=== PATIENT | female | born 1985 | race Caucasian/White ===

== ENCOUNTER 2016-06-01 11:07 | Emergency (ER) | payer SELFPAY ==
[~2016-06-01 11:07] MED LIST: Iopamidol 370 76% 100 ML VIAL ONE
[2016-06-01 11:52] LABS: Bilirubin Negative (Negative); Blood, Urine Trace (Negative); Glucose, Urine (Dipstick) Negative (Negative); Ketone, Urine Negative (Negative); Nitrite Negative (Negative); Protein, Urine (Dipstick) Negative (Neg-Trace); Urobilinogen 0.2 mg/dL (0.2-1.0)
[2016-06-01] MEDS ORDERED: Pantoprazole 40 MG VIAL ONE (12:01)
[2016-06-01] MEDS ORDERED: Ondansetron HCl/PF 4 MG/2 ML Vial ONE (12:01)
[2016-06-01 12:08] LABS: RBC/HPF 0-3 HPF (0-3); WBC/HPF 0-3 HPF (0-3)
[2016-06-01 12:09] LABS: Bacteria/HPF Rare-Few HPF (None Seen); Squamous Epithelial 0-3 HPF (0-3)
[2016-06-01 12:13] LABS: #Basophils 0.2 thou/uL (0.0-0.2); #Eosinphils 0.4 thou/uL (0.0-0.7); #Lymphocytes 2.2 thou/uL (1.20-3.40); #Monocytes 0.6 thou/uL (0.11-0.59); #Neutrophils 6.9 thou/uL (1.40-6.50); %Basophils 1.8 % (0.0-1.0); %Eosinophils 3.8 % (0.0-10.0); %Lymphocytes 21.6 % (21.0-51.0); %Monocytes 5.9 % (0.0-10.0); Hematocrit 41.6 % (36.0-47.0); Mean Platelet Volume 7.1 fL (7.4-10.4); Red Blood Cell (RBC) Count 4.87 mill/uL (4.20-5.40); White Blood Cell (WBC) Count 10.3 thou/uL (4.8-10.8)
[2016-06-01 12:28] LABS: ALT (SGPT) 13 U/L (0-55); AST (SGOT) 21 U/L (5-34); Alkaline Phosphatase 76 U/L (40-150); Amylase 60 U/L (25-125); Anion Gap 14 mmol/L (10-20); BUN (Urea Nitrogen) 13 mg/dL (7.0-18.7); Bilirubin, Total 0.1 mg/dL (0.2-1.2); Calc. Creatinine Clearance 0 mL/min (70-130); Calcium 9.2 mg/dL (7.8-10.44); Carbon Dioxide 24 mmol/L (22-29); Chloride 105 mmol/L (98-107); Estimated GFR-MDRD 81; Globulin 3.5 g/dL (2.4-3.5); Lipase 28 U/L (8-78); Protein, Total 7.5 g/dL (6.0-8.3)
--- NOTE | 2016-06-01 13:33 | CT ---
CT ABDOMEN AND PELVIS WITH CONTRAST: COMPARISON: None. HISTORY: Epigastric abdominal pain. TECHNIQUE: Multiple contiguous axial images were obtained in a CT of the abdomen and pelvis with contrast. Cor onal reformats were performed. FINDINGS: There is a subcentimeter hypodensity in the left kidney which is too small to definitely characteriz e but likely represents a cyst. The liver, gallbladder, right kidney, adrenal glands, spleen, and p ancreas are unremarkable. No free air, free fluid, or stranding changes are seen in the abdomen or pelvis. The reproductive organs are unremarkable. The large and small bowel are unremarkable. The appendix is normal. No abdominal or pelvic lymphadenopathy are present. The abdominal wall soft tissues, visualized inferior thorax, and osseous structures are unremarkable . IMPRESSION: No evidence of acute intraabdominal/pelvic abnormality. POS: RENETTAH
--- NOTE | 2016-06-01 13:34 | ERRECORD ---
[facility] EMERGENCY RECORD HPI ABDOMINAL PAIN (11:56 JOHE) CHIEF COMPLAINTS: Patient presents for evaluation of abdominal pain. HISTORIAN: History provided by patient, Pt. reports 5 days of constant aching abdominal pain across the upper abdomen, radiating to the back this morning. Patient reports no exacerbating/relieving factors. Has had naseua but no vomiting. [place] constipated the other day, but had BM last night. No F&C, vomiting, hematochezia, melena, urinary symptoms, vaginal discharge or other symptoms. No falls or trauma. Patient reports she did drink heavily the day the pain started, and also used some marijuana and cocaine. No drug or alcohol use since. LOCATION FEMALE: Symptoms are localized, most severe in the upper abdomen, Radiation, to the back, No migration of pain. QUALITY: Pain is dull in nature, described as aching. SEVERITY: Maximum severity of symptoms severe, Currently symptoms are severe. TIME COURSE: Gradual onset of symptoms, Symptoms are constant, Symptoms are worsening. ASSOCIATED WITH FEMALE: No associated recent antibiotic use, No associated bright red blood per rectum, No associated chills, No associated constipation, No associated diarrhea, No associated fever, No associated flank pain, No associated groin pain, No associated hematemesis, No associated hematuria, Associated with loss of appetite, No associated melena, Associated with nausea, No associated night sweats, No associated trauma, No associated recent travel, No associated inability to tolerate oral intake, No associated urinary tract infection signs or symptoms, No associated vomiting, No associated vaginal discharge, No associated weight change, Denies any other complaints. RELIEVED BY: Patient's condition relieved by nothing because patient has not tried anything for relief. EXACERBATED BY: Patient's condition exacerbated by nothing. RISK FACTORS FEMALE: Ectopic risk factors:, no current intrauterine device, no history of infertility treatment, no history of pelvic inflammatory disease, no history of prior ectopic, no history of tubal ligation, no history of tubal surgery, no recent pelvic procedure, Abdominal aortic aneurysm risk factors, no connective tissue disorders, no Rhett Danlos syndrome, no first degree relative, no Marfan's syndrome, patient not over 40 years of age, no history of abdominal aortic aneurysm, Coronary artery disease risk factors, no known coronary artery disease, no diabetes, no family history, no high cholesterol, no hypertension, include smoking. ROS (12:00 JOHE) CONSTITUTIONAL: Historian denies chills, denies fatigue, denies fever, denies malaise, denies weight loss. EYES: Historian denies eye pain, denies eye redness, denies vision changes. ENT: Historian denies otalgia, denies rhinorrhea, denies sore &a-1R&a+25V*p+0X*l1912B*c202B*c15G*c2P*p-0X&a-25V&a+1R Name: Gracie Brown : 1985 F31 MedRec: [id number] AcctNum: [id number] Prepared: Ashley Jun 01, 2016 15:45 by Interface Page 1 of 5 pMD [facility] EMERGENCY RECORD throat. CARDIOVASCULAR: Historian denies chest pain, denies syncope, denies palpitations. RESPIRATORY: Historian reports cough, denies shortness of breath, reports sputum. clear, Historian denies wheezing. GI: Historian reports abdominal pain, reports appetite changes, denies diarrhea, denies hematemesis, denies hematochezia, denies melena, reports nausea, denies vomiting. GENITOURINARY FEMALE: Historian denies dysuria, denies frequency, denies hematuria, denies hesitancy, denies , denies urgency, denies vaginal discharge. states she has had some irregular menstrual bleeding for past several weeks, onset prior to current pain. MUSCULOSKELETAL: Historian reports back pain, denies deformity, denies fall, denies joint redness, denies joint swelling, denies myalgias. SKIN: Historian denies cellulitis, denies skin changes, denies skin lesions. NEUROLOGIC: Historian denies dizziness, denies focal weakness, denies gait changes, denies headache, denies paralysis, denies paresthesias. HEMO/LYMPHATIC: Historian denies abnormal blood clotting, denies easy bruising, denies petechiae. PSYCHIATRIC: Historian reports alcohol abuse, reports drug abuse, denies hallucinations, denies homicidal ideation, denies suicidal ideation. NOTES: All systems reviewed, negative except as described above. PAST MEDICAL HISTORY (11:19 MCBE) MEDICAL HISTORY: No past medical history. FEMALE SURGICAL HISTORY: Patient has no surgical history. PSYCHIATRIC HISTORY: No previous psychiatric history. SOCIAL HISTORY: Patient drinks every day, less than 5 drinks per day, Patient currently uses drugs, abuses cocaine, abuses marijuana, Patient currently uses tobacco, smokes cigarettes, Patient has smoked for 15 years, Patient smokes 1 pack per day. KNOWN ALLERGIES No Known Drug Allergies CURRENT MEDICATIONS (11:14 MCBE) None VITAL SIGNS VITAL SIGNS: BP: 119/74, Pulse: 90, Resp: 18, Temp: 98.2 (Oral), Pain: 8, O2 sat: 98 on Room Air, Time: 06/01/2016 11:11. (11:11 [facility]BE) BP: 111/73, Pulse: 87, Resp: 16, Temp: 97.6, Pain: 2, O2 sat: 99 on ra, &a-1R&a+25V*p+0X*o8121I*c202B*c15G*c2P*p-0X&a-25V&a+1R Name: Gracie Brown : 1985 F31 MedRec: [id number] AcctNum: [id number] Prepared: Ashley Jun 01, 2016 15:45 by Interface Page 2 of 5 pMD [facility] EMERGENCY RECORD Time: 06/01/2016 13:27. (13:27 [facility]) PHYSICAL EXAM (12:01 [facility]) CONSTITUTIONAL: Vital Signs Reviewed, Patient alert and oriented to person, place and time. HEAD: Head exam normal, Head exam included findings of head atraumatic, normocephalic. EYES: Eye exam normal, Eye exam included findings of eyelids normal to inspection, Pupils equally round and reactive to light, Extraocular muscles intact, Conjunctiva normal, Sclera normal. ENT: Pharynx exam normal, not injected, no swelling, symmetrical, Uvula exam normal, midline, no edema, Tonsil exam normal, not enlarged, no exudates, Mouth exam normal, mucous membranes moist, no drooling, no lesions, no lacerations, no tongue elevation. NECK: Neck exam normal, Neck exam included findings of normal range of motion, Trachea midline, no abrasions, no contusions, no ecchymosis. RESPIRATORY CHEST: Respiratory and chest exam normal, Respiratory exam included findings of no respiratory distress, Breath sounds clear, No wheezing, No rales, No rhonchi, Breath sounds not absent, Breath sounds not diminished, Chest exam included findings of chest movement symmetrical, Chest expansion equal, no tenderness, no crepitus, CTAB, good air movement; no chest wall tenderness. CARDIOVASCULAR: Cardiovascular assessment normal, Cardiovascular exam included findings of heart rate regular rate and rhythm, Heart sounds normal, Carotids normal, Pedal pulses normal, RRR, no R/M/G. + pulses all ext., no bruits, no edema. ABDOMEN FEMALE: Bowel sounds normal, no mass, no pulsatile masses, no peritoneal signs, no rigidity, no guarding, no rebound, Soft, ND, TTP epigastrium without guarding or rebound, + BS. Negative Kapoor sign, no CVAT. BACK: Back exam normal, Back exam included findings of normal inspection, range of motion normal, no tenderness, no costovertebral angle tenderness. UPPER EXTREMITY: Upper extremity exam normal, Upper extremity exam included findings of inspection normal, Range of motion normal, Radial pulse normal. LOWER EXTREMITY: Lower extremity exam normal, Lower extremity exam included findings of inspection normal, Range of motion normal, Posterior tibial pulse normal, Pedal pulse normal, no calf tenderness, no palpable cords. NEURO: Neuro exam normal, Jerrica coma scale 15, Neuro exam findings include patient oriented to person, place and time, Speech normal, Gait normal, Cranial nerves intact, no focal motor deficits, no focal sensory deficits. SKIN: Skin exam normal, Skin exam included findings of skin warm, dry, and normal in color, no rash. RADIOLOGYINTERPRETATION (13:11 JOHE) ABDOMEN: Abdomen/pelvis CT scan, with contrast negative, no &a-1R&a+25V*p+0X*c8697R*c202B*c15G*c2P*p-0X&a-25V&a+1R Name: Gracie Brown : 1985 F31 MedRec: [id number] AcctNum: [id number] Prepared: Ashley Jun 01, 2016 15:45 by Interface Page 3 of 5 pMD [facility] EMERGENCY RECORD abdominal aortic aneurysm, no appendicitis, no diverticulitis, no kidney stones, no injuries, no mass, no obstruction, no free air, no hydronephrosis, subcentimeter hypodense lesion in left kidney, likely cyst. 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 MEDICATION ADMINISTRATION SUMMARY Drug Name: Protonix intravenous, Dose Ordered: 40 mg, Route: IV Push, Status: Given, Time: 12:34 06/01/2016, Drug Name: Zofran intravenous, Dose Ordered: 4 mg, Route: IV Push, Status: Given, Time: 12:33 06/01/2016, Drug Name: morphine intravenous, Dose Ordered: 4 mg, Route: IV Push, Status: Given, Time: 12:33 06/01/2016, Detailed record available in Medication Service section. DOCTOR NOTES (:36 ) TEXT: Note: chart completed after patient discharge. Patient reports improved pain after medications. Abd. soft, ND, mildly TTP epigastrium, no guarding or rebound. + BS. Discussed results, and differential for epigastric pain, including gastritis/PUD, pancreatitis, biliary colic, etc. Discussed that suspect gastritis after alcohol/drug binge. Discussed avoiding these substances, as well as spicy/greasy foods. Stressed need for close outpatient f/u, and warning signs for immediate return to ED. Patient denies SI/HI, and feels safe at home when asked. Recommended close f/u for drug and alcohol counseling. DATA REVIEWED: Lab data reviewed, Xray data reviewed. PROBLEM LIST No recorded problems DIAGNOSIS (:) FINAL: PRIMARY: epigastric abdominal pain. PRESCRIPTION (:) Pepcid oral: TABLET : 40 mg : ORAL : Quantity: 1 Unit: tab(s) Route: ORAL Schedule: once a day (in the morning) Dispense: 30 Unit: tab(s) May substitute. Refills: No Refills . NOTES: No Refills. Zofran ODT: TABLET,DISINTEGRATING : 4 mg : ORAL : Quantity: 1 Unit: tab(s) Route: ORAL Schedule: every 8 hours PRN Dispense: 15 Unit: tab(s) May substitute. Refills: No Refills . NOTES: No Refills. DISPOSITION PATIENT: Disposition Type: Discharge, Disposition: *Discharge Home, Condition: Good. (:) &a-1R&a+25V*p+0X*o0720B*c202B*c15G*c2P*p-0X&a-25V&a+1R Name: Gracie Brown : 1985 1 MedRec: [id number] AcctNum: [id number] Prepared: Ashley Jun 01, 2016 15:45 by Interface Page 4 of 5 pMD [facility] EMERGENCY RECORD Patient left the department. (13:31 LCAS) Elias: RALE[place]=MD Jason, Forest LCAS=MELISSA Farr, Miriam HAMPTON=Jennifer Metzger &a-1R&a+25V*p+0X*a7514K*c202B*c15G*c2P*p-0X&a-25V&a+1R Name: Gracie Brown : 1985 1 MedRec: [id number] AcctNum: [id number] Prepared: Ashley Jun 01, 2016 15:45 by Interface Page 5 of 5 pMD MTDD
--- NOTE | 2016-06-01 13:40 | PICIS ---
[facility] EMERGENCY RECORD TRIAGE ([place] Jun 01, 2016 11:14 MCBE) PATIENT: NAME: Gracie Brown, AGE: 31, GENDER: female, : Sun 1985, TIME OF GREET: [place] Jun 01, 2016 11:07, ECODE BILLING MAP: [facility], SSN: [id number], Zip Code: [address], KG WEIGHT: 48.99, PHONE: , , , PERSON ID: [id number]. ([place] Jun 01, 2016 11:14 MCBE) TRIAGE NOTES: reports feels like muscular pain to upper abd. no appetite. reports being constipation. hurts to the touch. ([place] Jun 01, 2016 11:14 MCBE) COMPLAINT: ABDOMINAL PAIN. ([place] Jun 01, 2016 11:14 MCBE) ADMISSION: URGENCY: 3 Urgent, ADMISSION SOURCE: Home, TRANSPORT: CAR, BED: ER -04. ([place] Jun 01, 2016 11:14 MCBE) ASSESSMENT: Assessment: IN NAD. CHEST RISE EQUAL BILAT. PATIENT AIRWAY. PATIENT ABLE TO AMBULATE WITHOUT DIFFIUCLTY. (11:19 MCBE) IMMUNIZATIONS: Flu vaccine not up to date, Tetanus not up to date. (11:19 MCBE) SIRS SCORING: Heart Rate 55-109 (0), Temp range 96.8-101.1 (0), respiratory rate 12-24 (0), Mental Status altered: no (0), Infection or Suspected Infection: No. (11:19 MCBE) TRIAGE SCREENING: Patient denies suicidal ideation, Patient denies presence of domestic violence. (11:19 MCBE) PROVIDERS: TRIAGE NURSE: Jennifer Metzger. ([place] Jun 01, 2016 11:14 MCBE) VITAL SIGNS: BP 119/74, Pulse 90, Resp 18, Temp 98.2, (Oral), Pain 8, O2 Sat 98, on Room Air, Time 06/01/2016 11:11. (11:11 MCBE) KNOWN ALLERGIES No Known Drug Allergies CURRENT MEDICATIONS (11:14 MCBE) None VITAL SIGNS VITAL SIGNS: BP: 119/74, Pulse: 90, Resp: 18, Temp: 98.2 (Oral), Pain: 8, O2 sat: 98 on Room Air, Time: 06/01/2016 11:11. (11:11 MCBE) BP: 111/73, Pulse: 87, Resp: 16, Temp: 97.6, Pain: 2, O2 sat: 99 on ra, Time: 06/01/2016 13:27. (13:27 LCAS) NURSING ASSESSMENT: ABDOMEN (11:15 MCBE) CONSTITUTIONAL: Complex assessment performed, Patient arrives ambulatory, Gait steady, History obtained from patient, Patient appears comfortable, Patient cooperative, Patient alert, Oriented to person, place and time, Skin warm, Skin dry, Skin normal in color, Mucous membranes pink, Mucous membranes moist, Patient is well-groomed, Patient complains of abd pain. PAIN: Onset of pain 05/28/2016, constant, on a scale 0-10 patient rates pain as 8. NONVERBAL PAIN: Non-Verbal pain assessment findings include: No non-verbal complaints while at rest (0), Non-Verbal complaints &a-1R&a+25V*p+0X*d4442O*c202B*c15G*c2P*p-0X&a-25V&a+1R Name: Gracie Brown : 1985 F31 MedRec: [id number] AcctNum: [id number] Prepared: Ashley Jun 01, 2016 15:45 by Interface Page 1 of 12 pMD [facility] EMERGENCY RECORD present with movement (1), Facial Grimaces not present at rest (0), Facial grimaces not present with movement (0), Bracing not present at rest (0), Bracing not present with movement (0), Restlessness not present at rest (0), Restlessness not present with movement (0), Rubbing not present at rest (0), Rubbing not present with movement (0), Result: 1. ABDOMEN: Abdomen assessment findings include abdomen symmetrical, Abdomen soft, tender, Bowel sound normal, no associated nausea, no associated vomiting, no associated diarrhea, no associated constipation, Date of last bowel movement: 05/31/2016. LMP: : 1, Para: 1, Abortions: 0, First day last menstrual period, Last period started on 05/06/2016. GENITOURINARY FEMALE: no associated urinary complaints, no associated vaginal discharge, no associated vaginal bleeding. NURSING PROCEDURE: DISCHARGE NOTE (13:27 LCAS) DISCHARGE: Patient discharged to home, ambulating without assistance, friend driving, accompanied by friend, Summary of Care printed/ provided, Patient requested and was provided an electronic copy of Discharge Instructions, Transition record given to patient, Discharge instructions given to patient, Simple or moderate discharge teaching performed, Prescriptions given and instructions on side effects given, Above person(s) verbalized understanding of discharge instructions and follow-up care. BELONGINGS: Belongings and valuables with patient at time of discharge include:, Belongings remain with patient. VITAL SIGNS: BP: 111, / 73, Pulse: 87, Resp: 16, Temp: 97.6, Pain: 2, O2 sat: 99, on: ra. NURSING PROCEDURE: IV PATIENT IDENITIFIER: Patient actively involved in identification process, Patient's identity verified by patient stating name, Patient's identity verified by patient stating date, Patient's identity verified by hospital ID bracelet. (11:59 MCBE) IV SITE 1: IV therapy indicated for hydration, IV therapy indicated for medication administration, IV established, to the right antecubital, using an 18 gauge catheter, in one attempt, IV site prepped with CHLORAPREP, Saline lock established, Flushed with normal saline (mls): 10, Labs drawn at time of placement, labeled in the presence of the patient and sent to lab. (11:59 MCBE) FOLLOW-UP SITE 1: IV discontinued, due to patient being discharged, catheter intact. (13:25 LCAS) NURSING PROCEDURE: NURSE NOTES NURSES NOTES: Notes: ERMD ADVISED HE WOULD PRESCRIBE PAIN MEDS IN ER IF PATIENT COULD FIND A RIDE. PATIENT WENT OUT TO CAR TO FIND A NUMBER FOR A RIDE. PATIENT RETURNS TO ER ROOM INFORMING THIS NURSE THAT SHE FOUND A RIDE. (11:48 MCBE) Notes: PATIENT REQUEST TO GO OUTSIDE TO SMOKE. INFORMED PATIENT THAT SHE CAN'T GO OUTSIDE WITH AN IV. INFORMED PATIENT OF WHAT RESULTS SHE &a-1R&a+25V*p+0X*c9298P*c202B*c15G*c2P*p-0X&a-25V&a+1R Name: Kevin Gracie L : 1985 F31 MedRec: [id number] AcctNum: [id number] Prepared: Ashley Jun 01, 2016 15:45 by Interface Page 2 of 12 pMD [facility] EMERGENCY RECORD IS WAITING ON AND HOW LONG TO EXPECT THE RESULTS TO COME IN. PATIENT VERBALLY ACKNOWLEDGE. REQUESTED TO HAVE THE IV TAKEN OUT. OTHER NURSE STATES THAT SHE CAN NOT LEAVE THE CAMPUS UNTIL SOMEONE IS HERE. THIS NURSE INFORMED THAT PATIENT THAT IT WAS FOR HER SAFETY TO KEEP THE IV IN, IN THE CASE OF NEEDING TO BE ADMITTED OT FOR OTHER TREATMENTS. (13:03 MCBE) NURSING PROCEDURE: TRANSPORT TO TESTS PATIENT IDENTIFIER: Patient actively involved in identification process, Patient's identity verified by patient stating name, Patient's identity verified by patient stating date, Patient's identity verified by hospital ID bracelet. (12:55 MCBE) TRANSPORT TO TESTS: Transport indicated to facilitate diagnosis, Patient transported to CT scan, ambulatory. (12:55 MCBE) Patient transported to CT scan, via wheelchair, Accompanied by x-ray printer technician, Patient arrived in location at 12:40, Patient departed location at 12:48. (13:01 CCRI) NURSING PROCEDURE: URINE COLLECTION (11:20 MCBE) PATIENT IDENTIFIER: Patient actively involved in identification process, Patient's identity verified by patient stating name, Patient's identity verified by patient stating date, Patient's identity verified by hospital ID bracelet. URINE COLLECTION FEMALE: Urine collected by mid-stream clean catch, Output amount (mL) 40, urine yellow in color, and clear, Specimen labeled in the presence of the patient and sent to lab, Specimen obtained for culture labeled in the presence of the patient and sent to lab. ORDER DETAILS Order Name: Amylase, Status: Active, Time: 11:39 06/01/2016, User: RALEIGH, - Ordered for: MD Gomez John, - Entered by: MD Gomez John - Ashley Jun 01, 2016 11:39, - Quantity: 1, Order Name: CBC with Differential, Status: Active, Time: 11:39 06/01/2016, User: RALEIGH, - Ordered for: MD Gomez John, - Entered by: MD Gomez John - Ashley Jun 01, 2016 11:39, - Quantity: 1, Order Name: Comprehensive Metabolic Panel, Status: Active, Time: 11:39 06/01/2016, User: RALEIGH, - Ordered for: MD Gomez John, - Entered by: MD Gomez John - Sun Jun 01, 2016 11:39, - Quantity: 1, Order Name: CT Abdomen Pelvis W Con, Status: Active, Time: 11:39 06/01/2016, User: RALEIGH, - Ordered for: MD Gomez John, - Entered by: MD Gomez John - Sun Jun 01, 2016 11:39, &a-1R&a+25V*p+0X*h5318R*c202B*c15G*c2P*p-0X&a-25V&a+1R Name: Gracie Brown : 1985 F31 MedRec: [id number] AcctNum: [id number] Prepared: ThuJun 01, 2016 15:45 by Interface Page 3 of 12 [facility] EMERGENCY RECORD - Quantity: 1, Order Name: Lipase, Status: Active, Time: 11:39 06/01/2016, User: RALEIGH, - Ordered for: MD Gomez John, - Entered by: MD Gomez John - Sun Jun 01, 2016 11:39, - Quantity: 1, Order Name: Test, Urine (BHCG), Status: Active, Time: 11:39 06/01/2016, User: RALEIGH, - Ordered for: MD Gomez John, - Entered by: MD Gomez John - Sun Jun 01, 2016 11:39, - Quantity: 1, Order Name: SALINE LOCK, Status: Done, Time: 12:01 06/01/2016, User: BERTA, - Ordered for: MD Gomez John, - Entered by: MD Gomez John - Sun Jun 01, 2016 11:39, - Quantity: 1, Order Name: Urinalysis w/ Rflx Microscopic, Status: Active, Time: 11:39 06/01/2016, User: RALEIGH, - Ordered for: MD Gomez John, - Entered by: MD Gomez John - Sun Jun 01, 2016 11:39, - Quantity: 1. MEDICATION ADMINISTRATION SUMMARY Drug Name: Protonix intravenous, Dose Ordered: 40 mg, Route: IV Push, Status: Given, Time: 12:34 06/01/2016, Drug Name: Zofran intravenous, Dose Ordered: 4 mg, Route: IV Push, Status: Given, Time: 12:33 06/01/2016, Drug Name: morphine intravenous, Dose Ordered: 4 mg, Route: IV Push, Status: Given, Time: 12:33 06/01/2016, Detailed record available in Medication Service section. MEDICATION SERVICE morphine intravenous: Order: morphine intravenous (morphine sulfate) - Dose: 4 mg : IV Push Schedule: Now Ordered by: Forest Gomez MD Entered by: MD Ashley Nagel Jun 01, 2016 11:40 , Acknowledged by: Jennifer Ramirez Jun 01, 2016 11:42 Documented as given by: Jennifer Ramirez Jun 01, 2016 12:33 Patient, Medication, Dose, Route and Time verified prior to administration. Amount given: 4MG, IV SITE #1 IVP, initial medication, Slowly, Awake and alert- acceptable, Catheter placement confirmed via flush prior to administration, IV site without signs or symptoms of infiltration during medication administration, No swelling during administration, No drainage during administration, IV flushed after administration, Correct patient, time, route, dose and medication confirmed prior to administration, Patient advised of actions and side-effects prior to administration, Allergies confirmed and medications reviewed prior to administration, Patient in position of comfort, Side rails up, Cart &a-1R&a+25V*p+0X*o1078C*c202B*c15G*c2P*p-0X&a-25V&a+1R Name: Gracie Brown : 1985 F31 MedRec: [id number] AcctNum: [id number] Prepared: Ashley Jun 01, 2016 15:45 by Interface Page 4 of 12 pMD [facility] EMERGENCY RECORD in lowest position, Call light in reach. : Follow Up : No signs or symptoms of allergic reaction noted, Decreased pain, _IV SITE #1:_. (13:20 LCAS) Protonix intravenous: Order: Protonix intravenous (pantoprazole sodium) - Dose: 40 mg : IV Push Schedule: Now Ordered by: Forest Gomez MD Entered by: Forest Gomez MD [place] Jun 01, 2016 11:40 , Acknowledged by: Jennifer Ramirez Jun 01, 2016 11:42 Documented as given by: Jennifer Metzger [place] Jun 01, 2016 12:34 Patient, Medication, Dose, Route and Time verified prior to administration. Amount given: 40MG, IV SITE #1 IVP, subsequent different medication, Slowly, Awake and alert- acceptable, Catheter placement confirmed via flush prior to administration, IV site without signs or symptoms of infiltration during medication administration, No swelling during administration, No drainage during administration, IV flushed after administration, Correct patient, time, route, dose and medication confirmed prior to administration, Patient advised of actions and side-effects prior to administration, Allergies confirmed and medications reviewed prior to administration, Patient in position of comfort, Side rails up, Cart in lowest position, Call light in reach. : Follow Up : No signs or symptoms of allergic reaction noted, _IV SITE #1:_. (13:20 LCAS) Zofran intravenous: Order: Zofran intravenous (ondansetron HCl) - Dose: 4 mg : IV Push Schedule: Now Ordered by: Forest Gomez MD Entered by: Forest Gomez MD [place] Jun 01, 2016 11:39 , Acknowledged by: Jennifer Ramirez Jun 01, 2016 11:42 Documented as given by: Jennifer Metzger [place] Jun 01, 2016 12:33 Patient, Medication, Dose, Route and Time verified prior to administration. Amount given: 4MG, IV SITE #1 IVP, subsequent different medication, Slowly, Awake and alert- acceptable, Catheter placement confirmed via flush prior to administration, IV site without signs or symptoms of infiltration during medication administration, No swelling during administration, No drainage during administration, IV flushed after administration, Correct patient, time, route, dose and medication confirmed prior to administration, Patient advised of actions and side-effects prior to administration, Allergies confirmed and medications reviewed prior to administration, Patient in position of comfort, Side rails up, Cart in lowest position, Call light in reach. : Follow Up : No signs or symptoms of allergic reaction noted, _IV SITE #1:_. (13:20 LCAS) HPI ABDOMINAL PAIN (11:56 JOHE) CHIEF COMPLAINTS: Patient presents for evaluation of abdominal pain. HISTORIAN: History provided by patient, Pt. reports 5 days of constant aching abdominal pain &a-1R&a+25V*p+0X*r2346Q*c202B*c15G*c2P*p-0X&a-25V&a+1R Name: Gracie Brown : 1985 F31 MedRec: [id number] AcctNum: [id number] Prepared: Ashley Jun 01, 2016 15:45 by Interface Page 5 of 12 pMD [facility] EMERGENCY RECORD across the upper abdomen, radiating to the back this morning. Patient reports no exacerbating/relieving factors. Has had naseua but no vomiting. Hawks constipated the other day, but had BM last night. No F&C, vomiting, hematochezia, melena, urinary symptoms, vaginal discharge or other symptoms. No falls or trauma. Patient reports she did drink heavily the day the pain started, and also used some marijuana and cocaine. No drug or alcohol use since. LOCATION FEMALE: Symptoms are localized, most severe in the upper abdomen, Radiation, to the back, No migration of pain. QUALITY: Pain is dull in nature, described as aching. SEVERITY: Maximum severity of symptoms severe, Currently symptoms are severe. TIME COURSE: Gradual onset of symptoms, Symptoms are constant, Symptoms are worsening. ASSOCIATED WITH FEMALE: No associated recent antibiotic use, No associated bright red blood per rectum, No associated chills, No associated constipation, No associated diarrhea, No associated fever, No associated flank pain, No associated groin pain, No associated hematemesis, No associated hematuria, Associated with loss of appetite, No associated melena, Associated with nausea, No associated night sweats, No associated trauma, No associated recent travel, No associated inability to tolerate oral intake, No associated urinary tract infection signs or symptoms, No associated vomiting, No associated vaginal discharge, No associated weight change, Denies any other complaints. RELIEVED BY: Patient's condition relieved by nothing because patient has not tried anything for relief. EXACERBATED BY: Patient's condition exacerbated by nothing. RISK FACTORS FEMALE: Ectopic risk factors:, no current intrauterine device, no history of infertility treatment, no history of pelvic inflammatory disease, no history of prior ectopic, no history of tubal ligation, no history of tubal surgery, no recent pelvic procedure, Abdominal aortic aneurysm risk factors, no connective tissue disorders, no Rhett Danlos syndrome, no first degree relative, no Marfan's syndrome, patient not over 40 years of age, no history of abdominal aortic aneurysm, Coronary artery disease risk factors, no known coronary artery disease, no diabetes, no family history, no high cholesterol, no hypertension, include smoking. ROS (12:00 JOHE) CONSTITUTIONAL: Historian denies chills, denies fatigue, denies fever, denies malaise, denies weight loss. EYES: Historian denies eye pain, denies eye redness, denies vision changes. ENT: Historian denies otalgia, denies rhinorrhea, denies sore throat. CARDIOVASCULAR: Historian denies chest pain, denies syncope, denies palpitations. RESPIRATORY: Historian reports cough, denies shortness &a-1R&a+25V*p+0X*c2563I*c202B*c15G*c2P*p-0X&a-25V&a+1R Name: Gracie Brown : 1985 F31 MedRec: [id number] AcctNum: [id number] Prepared: Ashley Jun 01, 2016 15:45 by Interface Page 6 of 12 pMD [facility] EMERGENCY RECORD of breath, reports sputum. clear, Historian denies wheezing. GI: Historian reports abdominal pain, reports appetite changes, denies diarrhea, denies hematemesis, denies hematochezia, denies melena, reports nausea, denies vomiting. GENITOURINARY FEMALE: Historian denies dysuria, denies frequency, denies hematuria, denies hesitancy, denies , denies urgency, denies vaginal discharge. states she has had some irregular menstrual bleeding for past several weeks, onset prior to current pain. MUSCULOSKELETAL: Historian reports back pain, denies deformity, denies fall, denies joint redness, denies joint swelling, denies myalgias. SKIN: Historian denies cellulitis, denies skin changes, denies skin lesions. NEUROLOGIC: Historian denies dizziness, denies focal weakness, denies gait changes, denies headache, denies paralysis, denies paresthesias. HEMO/LYMPHATIC: Historian denies abnormal blood clotting, denies easy bruising, denies petechiae. PSYCHIATRIC: Historian reports alcohol abuse, reports drug abuse, denies hallucinations, denies homicidal ideation, denies suicidal ideation. NOTES: All systems reviewed, negative except as described above. PAST MEDICAL HISTORY (11:19 BE) MEDICAL HISTORY: No past medical history. FEMALE SURGICAL HISTORY: Patient has no surgical history. PSYCHIATRIC HISTORY: No previous psychiatric history. SOCIAL HISTORY: Patient drinks every day, less than 5 drinks per day, Patient currently uses drugs, abuses cocaine, abuses marijuana, Patient currently uses tobacco, smokes cigarettes, Patient has smoked for 15 years, Patient smokes 1 pack per day. [facility] CONSTITUTIONAL: Vital Signs Reviewed, Patient alert and oriented to person, place and time. HEAD: Head exam normal, Head exam included findings of head atraumatic, normocephalic. EYES: Eye exam normal, Eye exam included findings of eyelids normal to inspection, Pupils equally round and reactive to light, Extraocular muscles intact, Conjunctiva normal, Sclera normal. ENT: Pharynx exam normal, not injected, no swelling, symmetrical, Uvula exam normal, midline, no edema, Tonsil exam normal, not enlarged, no exudates, Mouth exam normal, mucous membranes moist, no drooling, no lesions, no lacerations, no tongue elevation. NECK: Neck exam normal, Neck exam included findings of normal range of motion, Trachea midline, no abrasions, no contusions, no &a-1R&a+25V*p+0X*z7410N*c202B*c15G*c2P*p-0X&a-25V&a+1R Name: Gracie Brown : 1985 F31 MedRec: [id number] AcctNum: [id number] Prepared: Ashley Jun 01, 2016 15:45 by Interface Page 7 of 12 pMD [facility] EMERGENCY RECORD ecchymosis. RESPIRATORY CHEST: Respiratory and chest exam normal, Respiratory exam included findings of no respiratory distress, Breath sounds clear, No wheezing, No rales, No rhonchi, Breath sounds not absent, Breath sounds not diminished, Chest exam included findings of chest movement symmetrical, Chest expansion equal, no tenderness, no crepitus, CTAB, good air movement; no chest wall tenderness. CARDIOVASCULAR: Cardiovascular assessment normal, Cardiovascular exam included findings of heart rate regular rate and rhythm, Heart sounds normal, Carotids normal, Pedal pulses normal, RRR, no R/M/G. + pulses all ext., no bruits, no edema. ABDOMEN FEMALE: Bowel sounds normal, no mass, no pulsatile masses, no peritoneal signs, no rigidity, no guarding, no rebound, Soft, ND, TTP epigastrium without guarding or rebound, + BS. Negative Kapoor sign, no CVAT. BACK: Back exam normal, Back exam included findings of normal inspection, range of motion normal, no tenderness, no costovertebral angle tenderness. UPPER EXTREMITY: Upper extremity exam normal, Upper extremity exam included findings of inspection normal, Range of motion normal, Radial pulse normal. LOWER EXTREMITY: Lower extremity exam normal, Lower extremity exam included findings of inspection normal, Range of motion normal, Posterior tibial pulse normal, Pedal pulse normal, no calf tenderness, no palpable cords. NEURO: Neuro exam normal, Archie coma scale 15, Neuro exam findings include patient oriented to person, place and time, Speech normal, Gait normal, Cranial nerves intact, no focal motor deficits, no focal sensory deficits. SKIN: Skin exam normal, Skin exam included findings of skin warm, dry, and normal in color, no rash. LAB INTERPRETATION (12:39 JOHE) INTERPRETATION: I reviewed the lab results, No clinically significant lab abnormalities, CBC normal, Chemistry normal, Liver functions normal, Urinalysis abnormal, trace blood, Urine HCG negative. EVENTS TRANSFER: Triage to Emergency Emergency Room -04. ([place] Jun 01, 2016 11:14 MCBE) Removed from Emergency Emergency Room -04. (13:31 [facility]) RADIOLOGYINTERPRETATION (13:11 JOHE) ABDOMEN: Abdomen/pelvis CT scan, with contrast negative, no abdominal aortic aneurysm, no appendicitis, no diverticulitis, no kidney stones, no injuries, no mass, no obstruction, no free air, no hydronephrosis, subcentimeter hypodense lesion in left kidney, likely cyst. DANCE DIRECTOR: Preliminary review of CT scans by, Radiologist. &a-1R&a+25V*p+0X*q6846Z*c202B*c15G*c2P*p-0X&a-25V&a+1R Name: Gracie Brown : 1985 F31 MedRec: [id number] AcctNum: [id number] Prepared: Ashley Jun 01, 2016 15:45 by Interface Page 8 of 12 pMD [facility] EMERGENCY RECORD DOCTOR NOTES (15:36 JOHE) TEXT: Note: chart completed after patient discharge. Patient reports improved pain after medications. Abd. soft, ND, mildly TTP epigastrium, no guarding or rebound. + BS. Discussed results, and differential for epigastric pain, including gastritis/PUD, pancreatitis, biliary colic, etc. Discussed that suspect gastritis after alcohol/drug binge. Discussed avoiding these substances, as well as spicy/greasy foods. Stressed need for close outpatient f/u, and warning signs for immediate return to ED. Patient denies SI/HI, and feels safe at home when asked. Recommended close f/u for drug and alcohol counseling. DATA REVIEWED: Lab data reviewed, Xray data reviewed. PROBLEM LIST No recorded problems DIAGNOSIS (13:12 JOHE) FINAL: PRIMARY: epigastric abdominal pain. DISPOSITION PATIENT: Disposition Type: Discharge, Disposition: *Discharge Home, Condition: Good. (13:12 JOHE) Patient left the department. (13:31 LCAS) INSTRUCTION (13:22 JOHE) DISCHARGE: ABDOMINAL PAIN, UNKNOWN CAUSE, (FEMALE), ALCOHOL ABUSE, ABUSE DRUG GENERAL. FOLLOWUP: MD Saldaña Katherine, [facility], [address] [place] [address], [facility] [address], , Follow up with Primary Care Physician in 1-2 days. SPECIAL: Follow-up with your PCP. PRESCRIPTION (13:12 JOHE) Pepcid oral: TABLET : 40 mg : ORAL : Quantity: 1 Unit: tab(s) Route: ORAL Schedule: once a day (in the morning) Dispense: 30 Unit: tab(s) May substitute. Refills: No Refills . NOTES: No Refills. Zofran ODT: TABLET,DISINTEGRATING : 4 mg : ORAL : Quantity: 1 Unit: tab(s) Route: ORAL Schedule: every 8 hours PRN Dispense: 15 Unit: tab(s) May substitute. Refills: No Refills . NOTES: No Refills. IMAGING (13:30 LCAS) *DISCHARGE INSTRUCTIONS RECEIPT: Image captured from scanner. *SUPPLY CHARGE SHEET: Image captured from scanner. ADMIN &a-1R&a+25V*p+0X*s7967Y*c202B*c15G*c2P*p-0X&a-25V&a+1R Name: Gracie Brown : 1985 F31 MedRec: [id number] AcctNum: [id number] Prepared: ThuJun 01, 2016 15:45 by Interface Page 9 of 12 pMD [facility] EMERGENCY RECORD DIGITAL SIGNATURE: MELISSA Farr, Miriam. (13:31 LCAS) MD Jason, Forest. (15:39 JOHE) RESULTS LABORATORY: Urine Microscopic Collection DT: [place] Jun 01, 2016 11:58, RBC/HPF 0-3 HPF, Range (0-3), WBC/HPF 0-3 HPF, Range (0-3), Squamous Epithelial 0-3 HPF, Range (0-3), Bacteria/HPF Rare-Few HPF, Range (None Seen). (12:11 JOHE) Urinalysis w/ Rflx Microscopic Collection DT: [place] Jun 01, 2016 11:58, Color Yellow , Range (Yellow), Clarity SL HAZY , Range (Clear), Specific [place], Urine 1.025 , Range (1.005-1.030), pH, Urine 6.5 , Range (5.0-9.0), Leukocyte Negative , Range (Negative), Nitrite Negative , Range (Negative), Protein, Urine (Dipstick) Negative mg/dL, Range (Neg-Trace), Glucose, Urine (Dipstick) Negative mg/dL, Range (Negative), Ketone, Urine Negative mg/dL, Range (Negative), Urobilinogen 0.2 mg/dL, Range (0.2-1.0), Bilirubin Negative , Range (Negative), *Blood, Urine Trace - H , Range (Negative). (12:11 JOHE) Lipase Collection DT: [place] Jun 01, 2016 12:08, Lipase 28 U/L, Range (8-78). (12:32 JOHE) Amylase Collection DT: [place] Jun 01, 2016 12:08, Amylase 60 U/L, Range (25-125). (12:32 ) Comprehensive Metabolic Panel Collection DT: [place] Jun 01, 2016 12:08, Sodium 139 mmol/L, Range (136-145), Potassium 3.9 mmol/L, Range (3.5-5.1), Chloride 105 mmol/L, Range (98-107), Carbon Dioxide 24 mmol/L, Range (22-29), Anion Gap 14 mmol/L, Range (10-20), BUN (Urea Nitrogen) 13 mg/dL, Range (7.0-18.7), Creatinine 0.83 mg/dL, Range (0.6-1.1), Estimated GFR-MDRD 81 , Reference Range for Estimated GFR: Greater than 90, mL/min/1.73 m2 NOTE: The MDRD equation has not been validated for use, with the elderly (over 70 years of age), women, patients with, serious comorbid condition or persons with extremes of body size, muscle, mass, or nutritional status. , *Glucose 110 - H mg/dL, Range (70-105), Calcium 9.2 mg/dL, Range (7.8-10.44), *Bilirubin, Total 0.1 - L mg/dL, Range (0.2-1.2), Protein, Total 7.5 g/dL, Range (6.0-8.3), NOTE: Plasma values are generally 0.3 to 0.5 g/dL higher than serum values, due to the presence of fibrinogen. , Albumin 4.0 g/dL, Range (3.5-5.0), &a-1R&a+25V*p+0X*b5243I*c202B*c15G*c2P*p-0X&a-25V&a+1R Name: Gracie Brown : 1985 F31 MedRec: [id number] AcctNum: [id number] Prepared: [place] Jun 01, 2016 15:45 by Interface Page 10 of 12 pMD [facility] Globulin 3.5 g/dL, Range (2.4-3.5), *Alb/Glob Ratio 1.1 - L g/dL, Range (1.2-2.2), Alkaline Phosphatase 76 U/L, Range (40-150), AST (SGOT) 21 U/L, Range (5-34), ALT (SGPT) 13 U/L, Range (0-55). (12:32 JOHE) CBC with Differential Collection DT: [place] Jun 01, 2016 12:05, White Blood Cell (WBC) Count 10.3 thou/uL, Range (4.8-10.8), Red Blood Cell (RBC) Count 4.87 mill/uL, Range (4.20-5.40), Hemoglobin 12.9 g/dL, Range (12.0-16.0), Hematocrit 41.6 %, Range (36.0-47.0), Mean Corpuscular Volume 85.4 fl, Range (81.0-99.0), *Mean Corpuscular Hemoglobin 26.5 - L pg, Range (27.0-31.0), *Mean Corpuscular HGB CONC 31.1 - L g/dL, Range (32.0-36.0), *RBC Distribution Width 15.4 - H %, Range (11.5-14.5), *Platelet Count 436 - H thou/uL, Range (130-400), *Mean Platelet Volume 7.1 - L fL, Range (7.4-10.4), %Neutrophils 66.9 %, Range (42.0-75.0), %Lymphocytes 21.6 %, Range (21.0-51.0), %Monocytes 5.9 %, Range (0.0-10.0), %Eosinophils 3.8 %, Range (0.0-10.0), *%Basophils 1.8 - H %, Range (0.0-1.0), *#Neutrophils 6.9 - H thou/uL, Range (1.40-6.50), #Lymphocytes 2.2 thou/uL, Range (1.20-3.40), *#Monocytes 0.6 - H thou/uL, Range (0.11-0.59), #Eosinphils 0.4 thou/uL, Range (0.0-0.7), #Basophils 0.2 thou/uL, Range (0.0-0.2). (12:32 [place]) Test, Urine (BHCG) Collection DT: [place] Jun 01, 2016 11:58, Test - Urine (BHCG) NEGATIVE , Range (NEGATIVE), Method of sensitivity- Indeterminant: results should be repeated, after 48 hours. Positive: results may be detected as early as 4-5 days before a first missed menses. Elimination of BHCG-, Elimination following first trimester D&C: 29-44 Days , Elimination following term : 8-24 Days , Specific [place] 1.025 , Range (1.002-1.036), A dilute urine specimen may, not contain cash applications representative levels of hCG. If is still, suspected, a first morning urine specimen OR a random blood specimen should, be obtained from the patient 48-72 hours later and re-tested. , . (12:32 [place]) Elias: &a-1R&a+25V*p+0X*c4900E*c202B*c15G*c2P*p-0X&a-25V&a+1R Name: Gracie Brown : 1985 1 MedRec: [id number] AcctNum: [id number] Prepared: [place] Jun 01, 2016 15:45 by Interface Page 11 of 12 pMD [facility] CCRI=ANICETO Menjivar, Brian STOREY=MD Jason, Forest BHATT=MELISSA Farr, Miriam HAMPTON=Jennifer Metzger &a-1R&a+25V*p+0X*v7646U*c202B*c15G*c2P*p-0X&a-25V&a+1R Name: Gracie Brown : 1985 F31 MedRec: [id number] AcctNum: [id number] Prepared: [place] Jun 01, 2016 15:45 by Interface Page 12 of 12 pMD MTDD
== END 2016-06-01 13:27 | disposition home or self-care (01) ==
LOC: NAV ERS 11:07
DX: R10.13 Epigastric pain (principal); F17.210 Nicotine dependence, cigarettes, uncomplicated
CPT/HCPCS: 74177; 80053; 81003; 81015; 81025; 82150; 83690; 85025; 96374; 96375; C9113; J2270; J2405

== ENCOUNTER 2017-03-09 14:41 | Emergency (ER) | payer SELFPAY ==
[2017-03-09 15:32] LABS: Bilirubin Negative (Negative); Blood, Urine Trace (Negative); Clarity Clear (Clear); Glucose, Urine (Dipstick) Negative (Negative); Leukocyte Trace (Negative); Nitrite Negative (Negative); Protein, Urine (Dipstick) Negative (Neg-Trace); Urobilinogen 0.2 mg/dL (0.2-1.0); pH, Urine 6.5 (5.0-9.0)
[2017-03-09 15:54] LABS: RBC/HPF None Seen HPF (0-3); Squamous Epithelial 0-3 HPF (0-3)
[2017-03-09 15:56] LABS: Pregnancy Test - Urine (BHCG) Negative (Negative); Pregu Control Background? CLEAR/WHITE (CLR/WHITE); Pregu Control Bar Appear? YES (CONTROL BAR)
[2017-03-09] MEDS ORDERED: cefTRIAXone\\ROCEPHIN 250 MG VIAL ONE (16:05)
[2017-03-09] MEDS ORDERED: Azithromycin 250 MG TAB ONE (16:05)
[2017-03-09] MEDS ORDERED: Lidocaine 1% 20 ML MDV ONE (16:06)
[2017-03-10 21:59] LABS: Chlamydia by PCR Not Detected (NotDetected); GC by PCR Not Detected (NotDetected)
== END 2017-03-09 16:30 | disposition home or self-care (01) ==
LOC: NAV ERS 14:41
DX: N76.0 Acute vaginitis (principal); F17.210 Nicotine dependence, cigarettes, uncomplicated
CPT/HCPCS: 81003; 81015; 81025; 87491; 87591; 96372; J0696; J2001

== ENCOUNTER 2017-06-10 04:47 | Emergency (ER) | payer MEDICAID, OTHER ==
[2017-06-10] MEDS ORDERED: Sodium Chloride 0.9% 1,000 ML ONE (05:19)
[2017-06-10] MEDS ORDERED: Ondansetron HCl/PF 4 MG/2 ML Vial ONE (05:19)
[2017-06-10 05:39] LABS: #Basophils 0.1 thou/uL (0.0-0.2); #Eosinphils 0.4 thou/uL (0.0-0.7); #Lymphocytes 0.9 thou/uL (1.20-3.40); #Monocytes 0.5 thou/uL (0.11-0.59); #Neutrophils 6.8 thou/uL (1.40-6.50); %Basophils 0.7 % (0.0-1.0); %Eosinophils 5.2 % (0.0-10.0); %Lymphocytes 10.1 % (21.0-51.0); %Monocytes 5.3 % (0.0-10.0); %Neutrophils 78.7 % (42.0-75.0); Hemoglobin 14.7 g/dL (12.0-16.0); Mean Corpuscular HGB CONC 31.4 g/dL (32.0-36.0); Mean Corpuscular Hemoglobin 26.6 pg (27.0-31.0); Mean Corpuscular Volume 84.8 fl (81.0-99.0); Mean Platelet Volume 8.5 fL (7.4-10.4); Platelet Count 277 thou/uL (130-400); RBC Distribution Width 16.2 % (11.5-14.5); Red Blood Cell (RBC) Count 5.53 mill/uL (4.20-5.40); White Blood Cell (WBC) Count 8.6 thou/uL (4.8-10.8)
[2017-06-10 05:51] LABS: ALT (SGPT) 14 U/L (8-55); AST (SGOT) 20 U/L (5-34); Albumin 3.9 g/dL (3.5-5.0); Alkaline Phosphatase 75 U/L (40-150); Anion Gap 14 mmol/L (10-20); BUN (Urea Nitrogen) 8 mg/dL (7.0-18.7); Bilirubin, Total 0.3 mg/dL (0.2-1.2); Calc. Creatinine Clearance 0 mL/min (70-130); Calcium 9.4 mg/dL (7.8-10.44); Carbon Dioxide 28 mmol/L (22-29); Chloride 98 mmol/L (98-107); Estimated GFR-MDRD 62; Globulin 3.3 g/dL (2.4-3.5); Glucose 140 mg/dL (70-105); Lipase 14 U/L (8-78); Potassium 3.6 mmol/L (3.5-5.1); Protein, Total 7.2 g/dL (6.0-8.3); Sodium 136 mmol/L (136-145)
[2017-06-10] MEDS ORDERED: Sodium Chloride 0.9% 100 ML ONE (06:08)
[2017-06-10] MEDS ORDERED: Dicyclomine 20 MG TAB ONE (06:08)
[2017-06-10] MEDS ORDERED: Promethazine HCl 25 MG/ML VIAL ONE (06:08)
[2017-06-10 06:09] LABS: Bilirubin Negative (Negative); Blood, Urine Negative (Negative); Clarity Clear (Clear); Glucose, Urine (Dipstick) Negative (Negative); Leukocyte Negative (Negative); Nitrite Negative (Negative); Protein, Urine (Dipstick) Negative (Neg-Trace); Specific Gravity, Urine 1.015 (1.005-1.030)
[2017-06-10 06:13] LABS: Pregnancy Test - Urine (BHCG) Negative (Negative)
[2017-06-10 06:14] LABS: Pregu Control Background? CLEAR/WHITE (CLR/WHITE); Pregu Control Bar Appear? YES (CONTROL BAR); Specific Gravity 1.015 (1.002-1.036)
[2017-06-10 06:19] LABS: Amphetamine Not Detected (NotDetected); Barbiturates Screen Not Detected (NotDetected); Benzodiazepine Screen Not Detected (NotDetected); Cocaine Metabolite Screen Detected (NotDetected); Medtox Control Line Valid? VALID (VALID); Methadone Not Detected (NotDetected); Methamphetamine Not Detected (NotDetected); Opiate Screen Not Detected (NotDetected); Oxycodone Screen Not Detected (NotDetected); Phencyclidine (PCP) Not Detected (NotDetected); THC/Cannabinoid Screen Not Detected (NotDetected); Tricyclic Screen Not Detected (NotDetected)
== END 2017-06-10 06:39 | disposition home or self-care (01) ==
LOC: NAV ERS 04:47
DX: F10.129 Alcohol abuse with intoxication, unspecified (principal); F14.10 Cocaine abuse, uncomplicated; R11.2 Nausea with vomiting, unspecified; F17.210 Nicotine dependence, cigarettes, uncomplicated
CPT/HCPCS: 80053; 80306; 81003; 81025; 83690; 85025; 96361; 96365; 96375; 99406; J2405; J2550; J7050

== ENCOUNTER 2017-08-21 16:36 | Emergency (ER) | payer OTHER ==
[2017-08-21] MEDS ORDERED: Lidocaine 1% 20 ML MDV ONE (17:07)
[2017-08-21] MEDS ORDERED: traMADol HCl 50 MG TAB ONE (17:07)
--- NOTE | 2017-08-21 18:12 | RAD ---
LEFT FOREARM TWO VIEWS: 08/21/17 HISTORY: Injury, mirror broke and broken glass stuck into left wrist. Evaluate for foreign body. FINDINGS/IMPRESSION: The left radius and ulna appear intact. No radiopaque foreign body is seen in the soft tissues of the forearm or the wrist. POS: [place]
== END 2017-08-21 18:01 | disposition home or self-care (01) ==
LOC: NAV ERS 16:36
DX: S51.812A Laceration without foreign body of left forearm, initial encounter (principal); F17.210 Nicotine dependence, cigarettes, uncomplicated; W25.XXXA Contact with sharp glass, initial encounter
CPT/HCPCS: 12001; J2001